=== PATIENT | female | born 1985 | race Caucasian/White ===

== ENCOUNTER 2021-02-11 20:31 | Emergency (ER) | payer MEDICARE ==
[~2021-02-11 20:31] MED LIST: ZOFRAN4 MG PO; ZPAK PO
[2021-02-11] MEDS ORDERED: AMOXICILLIN500 MG PO (21:03)
== END 2021-02-11 21:32 | disposition home or self-care (01) ==
LOC: FER 20:31
DX: H66.91 Otitis media, unspecified, right ear (principal); Z88.8 Allergy status to other drugs, medicaments and biological substances
CPT/HCPCS: 99282